=== PATIENT | male | born 1990 | race Caucasian/White ===

== ENCOUNTER 2017-09-15 18:57 | Emergency (ER) | payer OTHER ==
[~2017-09-15] VITALS: Ht 188 cm; Wt 90.8 kg
[2017-09-15 21:38] LABS: BASOPHIL (%) 0.2 % (0-1); EOSINOPHIL (%) 0.2 % (0-5); HEMATOCRIT 42.9 % (38.0-50.0); HEMOGLOBIN 15.8 G/DL (12.5-16.6); IMMATURE GRANULOCYTE (%) 0.4 % (0.0-0.7); LYMPHOCYTE (%) 9.2 % (15-42); LYMPHOCYTE COUNT 1.1 K/uL (1.0-2.8); MCH 32.6 PG (29.0-34.0); MCHC 36.8 G/DL (30.0-36.0); MCV 88.6 FL (86-99); MONOCYTE (%) 4.2 % (3-12); MONOCYTE COUNT 0.5 K/uL (0-0.8); NEUTROPHIL (%) 85.8 % (45-76); NEUTROPHIL COUNT 10.7 K/uL (1.8-6.4); PLATELET COUNT 166 K/uL (156-360); RBC DIS.WIDTH-CV 11.9 % (11.8-14.6); RBC DIS.WIDTH-SD 38.5 % (39-53); RED BLOOD COUNT 4.84 M/uL (4.00-5.50); WHITE BLOOD COUNT 12.4 K/uL (4.1-10.2)
[2017-09-15 21:52] LABS: ALBUMIN 4.7 g/dL (3.2-4.8); CHLORIDE 105 mEq/L (99-109); POTASSIUM 3.8 mEq/L (3.7-5.4); SODIUM 140 mEq/L (136-147)
[2017-09-15 21:54] LABS: GLUCOSE 104 mg/dL (70-99)
[2017-09-15 21:55] LABS: TOTAL PROTEIN 7.6 g/dL (6.4-8.3)
[2017-09-15 21:56] LABS: TOTAL BILIRUBIN 0.7 mg/dL (0.0-1.0)
[2017-09-15 21:58] LABS: ALKALINE PHOSPHATASE 101 IU/L (3-129); CREATININE 1.1 mg/dL (0.6-1.3); GFR ESTIMATE (CALCULATED) > 59 mL/min/ (58.99-99999)
[2017-09-15 21:59] LABS: UREA NITROGEN (BUN) 16 mg/dL (9-23)
[2017-09-15 22:00] LABS: AST (GOT) 18 IU/L (2-34); DIRECT BILIRUBIN 0.3 mg/dL (0.0-0.3)
[2017-09-15 22:01] LABS: ALT (GPT) 15 IU/L (3-49)
[2017-09-16] MEDS ORDERED: TRUVADA1 TABLET PO (00:29)
[2017-09-16] MEDS ORDERED: ISENTRESS400 MG PO (00:29)
[2017-09-16] MEDS ORDERED: CLINDAMYCIN HC300 MG PO (00:29)
[2017-09-16] MEDS ORDERED: DOXYCYCLINE HY100 MG PO (00:29)
[2017-09-16] MEDS ORDERED: ZOFRAN ODT4 MG PO (00:36)
[2017-09-16 01:05] VITALS: BP 150/96
[2017-09-16 11:02] LABS: HEPATITIS B SURFACE ANTIBODY Nonreactive; HEPATITIS C ANTIBODY Nonreactive; HIV-1/2 AB/AG COMBO Nonreactive
== END 2017-09-16 01:06 | disposition home or self-care (01) ==
LOC: EME 18:57
PROVIDERS: Nurse Practitioner Family
PROC: 3E0234Z Introduction of Serum, Toxoid and Vaccine into Muscle, Percutaneous Approach (ICD-10-PCS; principal; 2017-09-15)
DX: S50.871A Other superficial bite of right forearm, initial encounter (principal); S60.812A Abrasion of left wrist, initial encounter; Y04.1XXA Assault by human bite, initial encounter; Y99.0 Civilian activity done for income or pay; Y92.199 Unspecified place in other specified residential institution as the place of occurrence of the external cause; Y07.9 Unspecified perpetrator of maltreatment and neglect; Z23 Encounter for immunization; Z88.0 Allergy status to penicillin; Z88.8 Allergy status to other drugs, medicaments and biological substances
CPT/HCPCS: 73090; 73564; 80048; 80076; 85025; 86703; 86706; 86803; 99281; 99285